=== PATIENT | male | born 1970 | race Caucasian/White ===

== ENCOUNTER → 2019-12-04 | Outpatient (CLI) | payer OTHER ==
[2019-12-04 12:41] LABS: ABSOLUTE NEUTROPHILS 4.1 thou/uL (1.4-8.2); BASOPHILS 0.2 % (0.0-2.0); EOSINOPHILS 0.7 % (0.0-3.0); HEMATOCRIT 45.7 % (42.0-52.0); LYMPHOCYTES 15.3 % (24.0-44.0); MCH 31.5 pg (26.0-34.0); MCV 90.2 fL (80.0-100.0); MONOCYTES 8.1 % (1.0-8.0); PLATELET COUNT 186 thou/uL (150-400); POLYS 75.7 % (36.0-66.0); RBC 5.07 mil/uL (4.50-6.00); RDW 12.6 % (10.5-14.5); WBC 5.4 thou/uL (4.0-11.0)
[2019-12-04 13:45] LABS: ALBUMIN 4.5 g/dL (3.4-5.0); CALCIUM 9.6 mg/dL (8.5-10.1); CREATININE 1.1 mg/dL (0.7-1.3); POTASSIUM 4.4 mmol/L (3.5-5.1); TOTAL BILIRUBIN 0.9 mg/dL (0.2-1.0); TOTAL PROTEIN 7.3 g/dL (6.4-8.2)
== END ==
LOC: RAD 12:04
PROVIDERS: ATTEND Internal Medicine
DX: R91.1 Solitary pulmonary nodule (principal); J98.4 Other disorders of lung